=== PATIENT | female | born 1985 | race Two or more races ===

== ENCOUNTER 2017-09-06 21:14 | Emergency (ER) | payer OTHER ==
[~2017-09-06] VITALS: Ht 160 cm; Wt 65.8 kg
[2017-09-06] MEDS ORDERED: BENADRYL25 MG (22:04)
== END 2017-09-07 00:21 | disposition home or self-care (01) ==
LOC: ER 21:14
DX: T78.49XA Other allergy, initial encounter (principal); R21 Rash and other nonspecific skin eruption

== ENCOUNTER → 2017-09-26 | Emergency (ER) | payer OTHER ==
[~2017-09-26] VITALS: Ht 160 cm; Wt 69.9 kg
[~2017-09-26] MED LIST: BENADRYL25 MG
== END | disposition home or self-care (01) ==
LOC: ER 15:44
DX: G43.909 Migraine, unspecified, not intractable, without status migrainosus (principal); I10 Essential (primary) hypertension

== ENCOUNTER 2019-03-14 16:10 | Emergency (ER) | payer OTHER ==
[~2019-03-14] VITALS: Ht 160 cm; Wt 77.1 kg
== END 2019-03-14 18:50 | disposition home or self-care (01) ==
LOC: ER 16:10
DX: R51 Headache (principal)

== ENCOUNTER 2021-08-11 22:25 | Emergency (ER) | payer OTHER ==
[~2021-08-11] VITALS: Ht 160 cm; Wt 77.1 kg
[2021-08-12] MEDS ORDERED: KETO10TA2 PO (02:27)
== END 2021-08-12 03:20 ==
LOC: ER 22:25
DX: S93.401A Sprain of unspecified ligament of right ankle, initial encounter (principal); W18.30XA Fall on same level, unspecified, initial encounter; Y92.019 Unspecified place in single-family (private) house as the place of occurrence of the external cause; J45.998 Other asthma

== ENCOUNTER 2022-03-03 03:20 | Emergency (ER) | payer OTHER ==
[~2022-03-03] VITALS: Ht 160 cm; Wt 77.1 kg
[~2022-03-03 03:20] MED LIST changes: +KETO10TA2 PO
[2022-03-03] MEDS ORDERED: ADALAT CC30 MG PO (05:50)
== END 2022-03-03 06:14 | disposition home or self-care (01) ==
LOC: ER 03:20
DX: I10 Essential (primary) hypertension (principal)

== ENCOUNTER 2022-10-30 16:51 | Emergency (ER) | payer OTHER ==
[~2022-10-30] VITALS: Ht 160 cm; Wt 79.4 kg
[~2022-10-30 16:51] MED LIST changes: +ADALAT CC30 MG PO
[2022-10-30] MEDS ORDERED: DOLOGEN CAPLET1 EACH PO (19:04)
[2022-10-30] MEDS ORDERED: OSEL75CA PO (19:04)
[2022-10-30] MEDS ORDERED: IPRAT-ALBUT 0.5-3 ML IH (19:04)
[2022-10-30] MEDS ORDERED: TUSNEL LIQUID178 ML PO (19:04)
== END 2022-10-30 19:16 | disposition home or self-care (01) ==
LOC: ER 16:51
DX: J10.1 Influenza due to other identified influenza virus with other respiratory manifestations (principal); B34.9 Viral infection, unspecified; Z88.6 Allergy status to analgesic agent; Z20.822 Contact with and (suspected) exposure to COVID-19

== ENCOUNTER 2023-08-28 19:23 | Emergency (ER) | payer OTHER ==
[~2023-08-28] VITALS: Ht 160 cm; Wt 81.6 kg
[~2023-08-28 19:23] MED LIST changes: +DOLOGEN CAPLET1 EACH PO; +IPRAT-ALBUT 0.5-3 ML IH; +OSEL75CA PO; +TUSNEL LIQUID178 ML PO
[2023-08-28] MEDS ORDERED: COZAAR50 MG PO (20:32)
== END 2023-08-29 04:41 | disposition home or self-care (01) ==
LOC: ER 19:23
DX: M25.561 Pain in right knee (principal); Z88.6 Allergy status to analgesic agent

== ENCOUNTER 2025-04-22 22:51 | Emergency (ER) | payer OTHER ==
[~2025-04-22] VITALS: Ht 160 cm; Wt 79.4 kg
[~2025-04-22 22:51] MED LIST changes: +COZAAR50 MG PO
[2025-04-23 04:23] LABS: BASO % 0.6 % (0.1-1.2)
[2025-04-23 04:29] LABS: EOS # 0.13 (0.04-0.54); EOS % 1.6 % (0.7-7.0); LYMPH # 2.50 (1.18-3.74); LYMPH % 30.2 % (19.3-53.1); MEAN PLATELET VOLUME 10.80 fl (9.4-12.4); MONO # 0.55 (0.24-0.82); MONO % 6.6 % (4.7-12.5); NEUT # 5.04 (1.56-6.13); NEUT % 60.9 % (34.0-71.1); RED CELL DISTRIBUTION WIDTH 13.0 % (11.6-14.4)
[2025-04-23 04:44] LABS: BUN CREA RATIO 30.0 (7.0-25.0); CREATININE SERUM 0.54 mg/dL (0.55-1.02); GFR 127.03; GLUCOSE FASTING 103.0 mg/dL (65-100); OSMOLALITY SERUM 283.0 MOSM/KG (275-295)
== END 2025-04-23 05:17 | disposition home or self-care (01) ==
LOC: ER 22:51
DX: I10 Essential (primary) hypertension (principal); Z88.8 Allergy status to other drugs, medicaments and biological substances

== ENCOUNTER → 2025-04-24 | Emergency (ER) | payer OTHER ==
[~2025-04-24] VITALS: Ht 160 cm; Wt 79.4 kg
== END | disposition left against medical advice (07) ==
LOC: ER 10:39
DX: Z53.21 Procedure and treatment not carried out due to patient leaving prior to being seen by health care provider (principal)